=== PATIENT | male | born 1975 | race Caucasian/White ===

== ENCOUNTER 2019-05-09 12:25 | Inpatient (IN) | payer OTHER ==
--- NOTE | 2019-05-09 13:13 | PDOC ---
History of Present Illness - General History Source: Patient Exam Limitations: No Limitations - History of Present Illness Initial Comments: 05/09/19 17:36 43M PMH Asthma, polysubstance abuse (etoh, cocaine), anxiety sent from [facility] intake for lower back pain and b/l LE weakness and pain after multiple falls overnight after etoh and cocaine use. Drank continually through the night and used cocaine (states first time in 10 years); denies h/o DTs, drinks 1.5pt whiskey a day; last drink 8am today. Pt states he was unable to get up from the ground due to liquid on the ground - would fall every time he tried to pick himself up. Denies LOC, head strike, neck pain, headache, n/v, urinary incontinence, chest pain, sob. NKDA No PCP <Erich Singh - Last Filed: 05/09/19 17:35> <Susan Arguello - Last Filed: 05/09/19 18:51> - General Chief Complaint: Injury Stated Complaint: FALL Time Seen by Provider: 05/09/19 12:29 Past History - Past Medical History Anemia: No Asthma: Yes Cancer: No Cardiac Disorders: No CVA: No COPD: No CHF: No Dementia: No Diabetes: No GI Disorders: No Disorders: No HTN: No Hypercholesterolemia: No Kidney Stones: No Liver Disease: No Seizures: No Thyroid Disease: No - Surgical History Abdominal Surgery: No Appendectomy: No Cardiac Surgery: No Cholecystectomy: No Lung Surgery: No Neurologic Surgery: No Orthopedic Surgery: No - Reproductive History Testicular Surgery: No - Immunization History Immunization Up to Date: No - Psycho Social/Smoking Cessation Hx Smoking History: Current every day smoker Have you smoked in the past 12 months: Yes Number of Cigarettes Smoked Daily: 40 Information on smoking cessation initiated: Yes 'Breaking Loose' booklet given: 05/09/19 Hx Alcohol Use: Yes (1.5 Pint a day) Drug/Substance Use Hx: Yes (cocaine, marijuana,) Substance Use Type: Alcohol, Cocaine Hx Substance Use Treatment: Yes (10 years ago) <Erich Singh - Last Filed: 05/09/19 17:35> <Susan Arguello - Last Filed: 05/09/19 18:51> - Past Medical History Allergies/Adverse Reactions: Allergies Allergy/AdvReac Type Severity Reaction Status Date / Time No Known Allergies Allergy Verified 05/09/19 10:32 Home Medications: Ambulatory Orders Albuterol Sulfate Inhaler - [Ventolin HFA Inhaler -] 2 inh PO Q4H PRN #1 inh 08/23 Clomipramine HCl 50 mg PO TID 05/09/19 Clonazepam 1 mg PO TID 05/09/19 Fluticasone/Vilanterol [Breo Ellipta 100-25 Mcg INH] 1 each IH DAILY 05/09/19 Lamotrigine 150 mg PO BID 05/09/19 Review of Systems - Review of Systems Able to Perform ROS?: Yes Comments:: 05/09/19 17:36 CONSTITUTIONAL: Denies F / C HEENT: Denies headache RESP: Denies SOB CARD: Denies chest pain, palpitations GI: Endorses chronic constipation (last BM yesterday). Denies N / V / D, abdominal pain, inability to tolerate PO : Denies incontinence, retention SKIN: Denies rashes NEURO: endorses b/l LE pain and weakness; numbness of the thighs PSYCH: denies SI/HI, AVH. MSK: endorses low back pain Is the patient limited Upper Sorbian proficient: No <Erich Singh - Last Filed: 05/09/19 17:35> *Physical Exam - Vital Signs Last Vital Signs Temp Pulse Resp BP Pulse Ox 98.3 F 94 H 20 122/74 97 05/09/19 12:25 05/09/19 12:25 05/09/19 12:25 05/09/19 12:25 05/09/19 12:25 - Physical Exam 05/09/19 17:36 GEN: NAD. AAOx3. HEENT: NC/AT, CN II-XII intact, EOMI, PERRL. No facial asymmetry. Dry membranes ; no tongue fasciculation. Normal voice. Supple neck w/ FROM, no midline TTP. CV: S1/S2, RRR, no m/r/g LUNG: CTAB, no wheezes, crackles, rales, rhonchi. GI: equivocal TTP and guarding. +BS, nondistended, no masses MSK: 2+ distal pulses. No LE edema. Ecchymosis of b/l anterior knees w/o effusion or overlying warmth otherwise no obvious deformities of all extremities. Limited ROM of the hip and knees 2/2 pain and pt resistance. SKIN: Warm, dry, no rashes appreciated. PSYCH: Odd, anxious, labile affect; tearful at times and quickly returns to baseline. NEURO: Moving all extremities well. 5/5 UE strength. 5/5 dorsi/plantar flexion. Symmetric sensation. Unable to assess hip and knee strength 2/2 pain and resistance. BACK: no step offs, no signs of trauma, no pelvic instability; +TTP lumbar/ sacral midline and paraspinal. <Erich Singh - Last Filed: 05/09/19 17:35> - Vital Signs Last Vital Signs Temp Pulse Resp BP Pulse Ox 98.3 F 90 20 116/72 97 05/09/19 12:25 05/09/19 14:57 05/09/19 14:57 05/09/19 14:57 05/09/19 14:57 <Susan Arguello - Last Filed: 05/09/19 18:51> Heart Score/ECG Review #2 ECG reviewed & interpreted by me at: 18:20 General ECG Interpretation: Sinus Rhythm, Normal Rate, Normal Intervals Compared to previous ECG there are: No significant change 05/09/19 18:51 Normal sinus rhythm at [address] elevations or depressions. Unchanged from prior EKG. <Susan Arguello - Last Filed: 05/09/19 18:51> ED Treatment Course - LABORATORY CBC & Chemistry Diagram: 05/09/19 12:55 05/09/19 12:55 - RADIOLOGY Radiology Studies Ordered: Category Date Time Status CERVICAL SPINE CT W/O CONTR [CT] Stat CT Scan 05/09/19 13:[address] WITHOUT CONTRAST [CT] Stat CT Scan 05/09/19 13:09 Ordered CHEST X-RAY PORTABLE* [RAD] Stat Radiology 05/09/19 13:09 Ordered <Erich Singh - Last Filed: 05/09/19 17:35> - LABORATORY CBC & Chemistry Diagram: 05/09/19 12:55 05/09/19 12:55 - ADDITIONAL ORDERS Additional order review: Laboratory Results 05/09/19 05/09/19 12:55 12:55 Sodium 141 Potassium 4.6 Chloride 108 H Carbon Dioxide 21 Anion Gap 11 BUN 23.2 H Creatinine 1.6 H Est GFR (CKD-EPI)AfAm 60.26 Est GFR (CKD-EPI)NonAf 51.99 Random Glucose 73 L Calcium 8.3 L Total Bilirubin 0.4 AST 849 H ALT 246 H Alkaline Phosphatase 62 Troponin I 0.42 H Total Protein 7.7 Albumin 4.2 Alcohol, Quantitative 52.7 H 05/09/19 12:55 RBC 4.14 MCV 96.6 H MCHC 34.4 RDW 13.7 MPV 7.6 Neutrophils % 76.9 Lymphocytes % 11.0 Monocytes % 11.9 H Eosinophils % 0.0 Basophils % 0.2 - RADIOLOGY Radiology Studies Ordered: Category Date Time Status LUMBAR SPINE CT W/O CONTRAST [CT] Stat CT Scan 05/09/19 15:00 Ordered - Medications Given in the ED: ED Medications Discontinued Medications Generic Name Dose Route Start Last Admin Trade Name Freq PRN Reason Stop Dose Admin Acetaminophen 1,000 mg 05/09/19 13:14 05/09/19 13:26 Ofirmev Injection - IVPB 05/09/19 13:15 1,000 mg ONCE ONE Administration <Susan Arguello - Last Filed: 05/09/19 18:51> Medical Decision Making - Medical Decision Making 05/09/19 13:12 43M w/ etoh and cocaine abuse presenting with low back pain and b/l LE weakness/ pain. DDX- syncope (lytes, intox, cardiac), r/o fractures - cbc, cmp, cardiac, etoh - cxr - ekg - monitor VS and for withdrawal - pain ctrl 05/09/19 14:33 XR images and reports reviewed 05/09/19 15:33 CT images and reports reviewed EKG 1315 HR 97 NE 154 QRS 82 QTc 439 NSR labs reviewed elevated troponin, BUN/Cr, LFTs, Etoh, wbc - no baseline or prior labs to compare - CT lumbar - ASA, fluids 05/09/19 16:[address] Haq admitted <Erich Singh - Last Filed: 05/09/19 17:35> Discharge - Discharge Information Problems reviewed: Yes - Admission Yes <Erich Singh - Last Filed: 05/09/19 17:35> - Discharge Information Problems reviewed: Yes - Admission Yes <Susan Arguello - Last Filed: 05/09/19 18:51> - Discharge Information Clinical Impression/Diagnosis: NSTEMI (non-ST elevated myocardial infarction), Alcohol use, Back pain, Transaminitis Contusion, knee and lower leg Qualifiers: Encounter type: initial encounter Laterality: unspecified laterality Qualified Code(s): S80.00XA - Contusion of unspecified knee, initial encounter Condition: Fair
[2019-05-09] MEDS ORDERED: ACETAMINOPHEN 1000 MG/100 ML VIAL (NON FORMULARY) IVPB ONE (13:14)
[2019-05-09] MEDS ORDERED: ACETAMINOPHEN INJECTION 100 ML IVPB ONE (13:26)
--- NOTE | 2019-05-09 13:41 | PDOC ---
Attending Attestation - Resident Resident Name: Erich Singh - ED Attending Attestation I have performed the following: I have examined & evaluated the patient, The case was reviewed & discussed with the resident, I agree w/resident's findings & plan - HPI HPI: 05/09/19 13:40 43M PMH Asthma, polysubstance abuse (etoh, cocaine), anxiety sent from [facility] intake for lower back pain and b/l LE weakness and pain after multiple falls overnight after etoh and cocaine use beginning last night (where he had 1.5 pints of alcohol with cocaine). Drank continually through the night and used cocaine (states first time in 10 years); denies h/o DTs, drinks 1.5pt whiskey a day; last drink 8am today. Pt states he was unable to get up from the ground due to liquid on the ground - would fall every time he tried to pick himself up. he endorses BLE weakness and pain at his knees, where he may have fallen. a/w lower back pain, worse with movement. Denies LOC, head strike, neck pain, headache, n/v, urinary incontinence, chest pain, sob. went to [facility] today for detox, sent from [facility] for syncope evaluation, frequent falls., NKDA No PCP 05/09/19 15:01 05/09/19 15:13 - Physicial Exam PE: 05/09/19 13:40 Agree with the resident's HPI and PE as documented in the electronic medical record. NAD, EOMI, PERRL, nl conjunctiva, anicteric; neck supple. no C spine tenderness. lungs clear, RRR, abdomen soft nontender. no rebound, guarding. Back with lower lumbosacral TTP, no overlying skin discoloration or ecchymosis. MAGDALENO x4, no focal neuro deficits. No peripheral edema. normal color for ethnicity, WWP. +b/l knee and upper garvey ecchymosis and TTP, no joint laxity 2+ pulses in all extremities. 05/09/19 15:13 - Medical Decision Making 05/09/19 13:40 Vital Signs Temp Pulse Resp BP Pulse Ox 98.3 F 94 H 20 122/74 97 05/09/19 12:25 05/09/19 12:25 05/09/19 12:25 05/09/19 12:25 05/09/19 12:25 DDx. syncope: considered interval abnormalities including short QTC or long QT syndrome, WPW, conduction abnormality, Brugada, ACS, arrhythmia, PE, electrolyte disturbances, metabolic derangement. seizure, SENIOR SYSTEM OPERATOR lesion, CVA, ICH. vasovagal episode. Neuro exam is nonfocal, not consistent with CVA or primary neurologic abnormality. ETOH intoxication/withdrawal. 05/09/19 14:30 Chest x-ray is clear no acute pathology, x-rays of hip and knee are also unremarkable, no pelvic fractures noted No acute knee pathology is noted, incomplete fusion of the left anterior tibial tubercle but otherwise no acute changes. Laboratory results reviewed, alcohol level is +52.7, which could explain reactive leukocytosis 15 K. Remainder of electrolytes, wnl. +transaminitis seen, hepatitis panel sent, could be related to inflammatory liver disease, polysubstance abuse. however trop positive 0.4, ASA given EKG neg for acute pathology, NSR. no h/o bleeding issues in the past, no GIB. tylenol initially for pain control. additional toradol for anti inflammatory and analgesic effect CT head and C spine neg for acute pathology/bleed/ injuries. CT a/p of Lumbosacral spine added given his midline tenderness. doubt cauda equina/cord compression no neuro sx. CT L-spine from imaging on-call with anterior wedging deformities of T12 and L1 age-indeterminate, degenerative disc disease is seen at several levels. No posteriorly directed fragments, no spinal stenosis, no neural outlet encroachment at these levels. There is mild spinal stenosis at L3-L5 levels. No evidence of spinal instability. 05/09/19 15:14 admit for NSTEMI, tele, trend trops/serial ekg with monitor, pain control. syncope workup (though pt denies syncope, [facility] was concerned for syncope, frequent falls) 05/09/19 17:17 Heart Score/ECG Review #1 ECG reviewed & interpreted by me at: 13:15 General ECG Interpretation: Sinus Rhythm, Normal Rate, Normal Intervals 05/09/19 13:41 EKG normal sinus rhythm 97 bpm, no interval abnormalities, narrow QRS, ST and T wave segments and morphology normal.
[2019-05-09 13:53] LABS: BASO % 0.2 % (0-2.0); HEMOGLOBIN 13.7 GM/dL (11.7-16.9); MCH 33.2 pg (25.7-33.7); MCHC 34.4 g/dl (32.0-35.9); MEAN CELL VOLUME 96.6 fl (80-96); MEAN PLT VOLUME 7.6 fl (7.5-11.1); MONO % 11.9 % (3.8-10.2); NEUT % 76.9 % (42.8-82.8); PLATELET COUNT 302 K/MM3 (134-434); RBC 4.14 M/mm3 (4.00-5.60); RDW 13.7 % (11.9-15.9); WHITE BLOOD COUNT 15.1 K/mm3 (4.0-10.0)
[2019-05-09 14:35] LABS: ALBUMIN 4.2 g/dl (3.4-5.0); ALK PHOS 62 U/L (45-117); ANION GAP 11 MMOL/L (8-16); BILIRUBIN,TOTAL 0.4 mg/dL (0.2-1); BLOOD UREA NITROGEN 23.2 mg/dL (7-18); CALCIUM 8.3 mg/dL (8.5-10.1); CHLORIDE 108 mmol/L (98-107); CO2 21 mmol/L (21-32); CREATININE 1.6 mg/dL (0.55-1.3); GLUCOSE,RANDOM 73 mg/dL (74-106); POTASSIUM 4.6 mmol/L (3.5-5.1); SGOT/AST 849 U/L (15-37); SGPT/ALT 246 U/L (13-61); SODIUM 141 mmol/L (136-145); TOT PROT 7.7 g/dl (6.4-8.2)
[2019-05-09] MEDS ORDERED: ASPIRIN 81 MG CHEWABLE TABLETS PO ONE (15:15)
[2019-05-09] MEDS ORDERED: KETOROLAC TROMETHAMINE 15 MG/ML VIAL IVPUSH ONE (15:15)
[2019-05-09] MEDS ORDERED: KETOROLAC TROMETHAMINE 15 MG/ML VIAL ONE (15:18)
[2019-05-09] MEDS ORDERED: ASPIRIN 81 MG CHEWABLE TABLETS ONE (15:18)
[2019-05-09] MEDS ORDERED: SODIUM CHLORIDE 0.9% 500 ML INFUS.BAG IV ONE (15:20)
[2019-05-09] MEDS ORDERED: SODIUM CHLORIDE 0.9% 1000 ML INFUS.BAG IV ONE (18:21)
[2019-05-09] MEDS ORDERED: PIPERACILLIN/TAZOB 2.25 GM 2.25 GM in DEXTROSE 5%-WATER - 50 ML IVPB ONE (18:24)
[2019-05-09] MEDS ORDERED: PIPERACILLIN/TAZOB 2.25 GM 2.25 GM/50 ML BAG IVPB ONE (18:37)
--- NOTE | 2019-05-09 18:39 | HP ---
CHIEF COMPLAINT: weakness, severe myalgia, coca-cola colored urine HISTORY OF PRESENT ILLNESS: 43 M h/o OCD, anxiety disorder, asthma, PSA with Etoh and occasional cocaine, NOE on CPAP, obesity, presents to ED after episode of severe weakness and falling to the ground. Patient endorses going to a motel libertarian last night with some friends where he drank a 5th of vodka, and had an 8-ball (about 10 lines) of cocaine, soon after doing this, he felt an extreme sensation of euphoria and felt the urgent need to masturbate. Patient then began to masturbate for "hours ", and adds he did not let his penis go for 4-5 hours and endured prolonged, persistent masturbation. 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 At [facility], pt. was attempting to register but had frequent repeated falls due to severe myalgia and weakness so he was brought to ED. Patient denies CP/SOB, endorses some cough with whitish-yellow sputum, but denies fever/chills/ abdominal pain/diarrhea. Endorses his urine is like "coca-cola", and c/o severe b/l thigh pain and low back pain. ER course was notable for: (1) troponemia, ASA, ?Toradol given (2) Urology evaluation for penile trauma (3) aggressive IVF Recent Travel: denies PAST MEDICAL HISTORY: as above PAST SURGICAL HISTORY: denies Social History: Smoking: yes weed and occasional cigarettes Alcohol: yes 5th of vodka daily Drugs: THC, cocaine (occasional) Allergies No Known Allergies Allergy (Verified 05/09/19 10:32) HOME MEDICATIONS: Home Medications Medication Instructions Recorded Albuterol Sulfate Inhaler - 2 inh PO Q4H PRN #1 inh 12/14/15 [Ventolin HFA Inhaler -] Clomipramine HCl 50 mg PO TID 05/09/19 Clonazepam 1 mg PO TID 05/09/19 Fluticasone/Vilanterol [Breo 1 each IH DAILY 05/09/19 Ellipta 100-25 Mcg INH] Lamotrigine 150 mg PO BID 05/09/19 REVIEW OF SYSTEMS CONSTITUTIONAL: Absent: fever, chills, diaphoresis, generalized weakness, malaise, loss of appetite, weight change HEENT: Absent: rhinorrhea, nasal congestion, throat pain, throat swelling, difficulty swallowing, mouth swelling, ear pain, eye pain, visual changes CARDIOVASCULAR: Absent: chest pain, syncope, palpitations, irregular heart rate, lightheadedness , peripheral edema RESPIRATORY: Absent: cough, shortness of breath, dyspnea with exertion, orthopnea, wheezing, stridor, hemoptysis GASTROINTESTINAL: Absent: abdominal pain, abdominal distension, nausea, vomiting, diarrhea, constipation, melena, hematochezia GENITOURINARY: Absent: dysuria, frequency, urgency, hesitancy, hematuria, flank pain, genital pain MUSCULOSKELETAL: Absent: myalgia, arthralgia, joint swelling, back pain, neck pain SKIN: Absent: rash, itching, pallor HEMATOLOGIC/IMMUNOLOGIC: Absent: easy bleeding, easy bruising, lymphadenopathy, frequent infections ENDOCRINE: Absent: unexplained weight gain, unexplained weight loss, heat intolerance, cold intolerance NEUROLOGIC: Absent: headache, focal weakness or paresthesias, dizziness, unsteady gait, seizure, mental status changes, bladder or bowel incontinence PSYCHIATRIC: Absent: anxiety, depression, suicidal or homicidal ideation, hallucinations. PHYSICAL EXAMINATION Vital Signs - 24 hr 05/09/19 05/09/19 05/09/19 12:25 14:57 17:10 Temperature 98.3 F Pulse Rate 94 H Pulse Rate [ 90 Left Radial] Respiratory 20 20 Rate Blood Pressure 122/74 Blood Pressure 116/72 [Left Arm] O2 Sat by Pulse 97 97 100 Oximetry (%) 05/09/19 17:38 Temperature 98.1 F Pulse Rate Pulse Rate [ 72 Left Radial] Respiratory 20 Rate Blood Pressure Blood Pressure 126/86 [Left Arm] O2 Sat by Pulse 97 Oximetry (%) PE GA mildly anxious, AAox3, speaking in full sentences HEENT NC/AT, EOMI, neck supple Chest CTAB, no crackles or wheezing CVS s1, S2+, RRR, no m/r/g Abd obese, Soft, NT, ND, BS+ Ext No LE edema, b/l knee bruising and erythema tender to touch, good strength UE and LE, moves all 4 ext, ambulates but slowly swollen, erythematous penis with intact corporal bodies, profoundly ecchymotic with signs of skin excoriation and thickening, foreskin retractable, uretha patent, cremaster reflex positive Laboratory Results - last 24 hr 05/09/19 05/09/19 05/09/19 12:55 12:55 12:55 WBC 15.1 H RBC 4.14 Hgb 13.7 Hct 40.0 MCV 96.6 H MCH 33.2 MCHC 34.4 RDW 13.7 Plt Count 302 MPV 7.6 Absolute Neuts (auto) 11.6 H Neutrophils % 76.9 Lymphocytes % 11.0 Monocytes % 11.9 H Eosinophils % 0.0 Basophils % 0.2 Nucleated RBC % 0 Sodium 141 Potassium 4.6 Chloride 108 H Carbon Dioxide 21 Anion Gap 11 BUN 23.2 H Creatinine 1.6 H Est GFR (CKD-EPI)AfAm 60.26 Est GFR (CKD-EPI)NonAf 51.99 Random Glucose 73 L Calcium 8.3 L Total Bilirubin 0.4 AST 849 H ALT 246 H Alkaline Phosphatase 62 Creatine Kinase Emergency Medical Technician Troponin I 0.42 H Total Protein 7.7 Albumin 4.2 Alcohol, Quantitative 52.7 H 05/09/19 16:20 WBC RBC Hgb Hct MCV MCH MCHC RDW Plt Count MPV Absolute Neuts (auto) Neutrophils % Lymphocytes % Monocytes % Eosinophils % Basophils % Nucleated RBC % Sodium Potassium Chloride Carbon Dioxide Anion Gap BUN Creatinine Est GFR (CKD-EPI)AfAm Est GFR (CKD-EPI)NonAf Random Glucose Calcium Total Bilirubin AST ALT Alkaline Phosphatase Creatine Kinase Troponin I 0.45 H Total Protein Albumin Alcohol, Quantitative ASSESSMENT/PLAN: 43 M h/o OCD, anxiety disorder, NOE on CPAP, Etoh dependence, PSA with cocaine admitted for rhabdomyolysis with troponemia, HIPOLITO. Rhabdomyolysis 2/2 cocaine use, and prolonged, continuous act of masturbation with self inflicted penile injury aggressive IV hydration NS 200ml/hr, serial trops/CK/chem/LFTs Renal/bladder US, strict avoidance of nephrotoxins (received Toradol by ED staff ) counseled patient on etoh and drug abstinence Self inflicted penile injury on exam, seen with swollen, erythematous penis with skin fissures and skin breaks 1 dose of Zosyn in view of skin breaks and underlying cellulitis risk Urology evaluation to rule out fracture: Dr. Guerrero HIPOLITO likely 2/2 rhabdo, obtain renal/bladder US IV hydration, avoid nephrotoxins, serial chem/CK levels Renal consult: Dr Cruz Troponemia likely 2/2 cocaine use and underlying rhabdo, no clinical signs of ACS cont. trending to document peak, cardiac echo Cardiology consult NOE CPAP QHS counseled on diet, exercise, weight loss counseled on Klonipin worsening underlying NOE OCD likely was in acute exacerbation due to compulsive masturbation restart Clomipramine PSA counseled on etoh and drug abuse watch for Etoh withdrawal restart Klonipin this will also help treat Etoh withdrawal aggressive IVF Tele monitoring SCD/CAROLE for now Visit type - Emergency Visit Emergency Visit: Yes ED Registration Date: 05/09/19 Care time: The patient presented to the Emergency Department on the above date and was hospitalized for further evaluation of their emergent condition. - New Patient This patient is new to me today: Yes Date on this admission: 05/09/19 - Critical Care Critical Care patient: No
--- NOTE | 2019-05-09 18:47 | PN ---
Progress Note (short form) - Note Progress Note: UROLOGY CONSULT DICTATED. SCROTAL ELAVATION AND ICE PACKS. WILL NEED W/U OP.
[2019-05-09] MEDS: SODIUM CHLORIDE 1,000 ML IV SCH (18:56)
[2019-05-09] MEDS ORDERED: ALBUTEROL SO4 HFA INHALER IH PRN (19:02)
[2019-05-09] MEDS ORDERED: MORPHINE SULFATE 2 MG/ML VIAL IVPUSH ONE (20:49)
[2019-05-09] MEDS ORDERED: MORPHINE SULFATE 2 MG/ML VIAL ONE (20:51)
[2019-05-09] MEDS ORDERED: lamoTRIgine 100 MG TABLET PO SCH (22:00)
[2019-05-09] MEDS: LAMOTRIGINE 100 MG, LAMOTRIGINE 50 MG PO SCH (22:49)
[2019-05-09] MEDS: clonazePAM 0.5 MG TABLET PO PRN (22:49)
[2019-05-09] MEDS: MAG HYDROX/ALH/SMC/DPHA/LIDO 240 ML MOUTHWASH MM SCH (23:30)
[2019-05-10] MEDS: SODIUM CHLORIDE 1,000 ML IV SCH ×3 (00:15→21:51)
[2019-05-10 01:30] VITALS: BMI 34.5
[2019-05-10] MEDS ORDERED: MORPHINE SULFATE 2 MG/ML VIAL IVPUSH ONE ×2 (03:42→11:15)
[2019-05-10] MEDS ORDERED: LIDOCAINE 5% TOPICAL PATCH TP ONE (04:00)
[2019-05-10] MEDS: MAG HYDROX/ALH/SMC/DPHA/LIDO 240 ML MOUTHWASH MM SCH ×4 (05:53→21:50)
[2019-05-10 07:04] LABS: BASO % 0.5 % (0-2.0); EOS % 0.2 % (0-4.5); HEMATOCRIT 37.1 % (35.4-49); HEMOGLOBIN 12.6 GM/dL (11.7-16.9); LYMPH % 22.3 % (8-40); MCH 33.2 pg (25.7-33.7); MCHC 34.1 g/dl (32.0-35.9); MEAN CELL VOLUME 97.4 fl (80-96); MEAN PLT VOLUME 7.6 fl (7.5-11.1); MONO % 9.8 % (3.8-10.2); NEUT % 67.2 % (42.8-82.8); PLATELET COUNT 229 K/MM3 (134-434); RDW 13.1 % (11.9-15.9); WHITE BLOOD COUNT 8.3 K/mm3 (4.0-10.0)
[2019-05-10] MEDS ORDERED: PATIENT'S OWN MEDICATION (NON-FORMULARY) (Clomipramine Hcl [Clomipramine Hcl] 50 MG) PO SCH (07:30)
[2019-05-10 07:55] LABS: ALBUMIN 3.3 g/dl (3.4-5.0); ALK PHOS 49 U/L (45-117); ANION GAP 6 MMOL/L (8-16); BILIRUBIN,TOTAL 0.6 mg/dL (0.2-1); BLOOD UREA NITROGEN 20.5 mg/dL (7-18); CALCIUM 7.8 mg/dL (8.5-10.1); CHLORIDE 113 mmol/L (98-107); CO2 25 mmol/L (21-32); GLUCOSE,RANDOM 84 mg/dL (74-106); POTASSIUM 4.5 mmol/L (3.5-5.1); SGPT/ALT 414 U/L (13-61); SODIUM 144 mmol/L (136-145); TOT PROT 6.1 g/dl (6.4-8.2)
[2019-05-10 08:26] LABS: SGOT/AST 1353 U/L (15-37)
--- NOTE | 2019-05-10 08:39 | CON.ID ---
Consult Consult Specialty:: infectious diseases Referred by:: Reason for Consultation:: iv drug abuse,leukocytosis - History of Present Illness Chief Complaint: legs are hurting History of Present Illness: 43 M h/o OCD, anxiety disorder, asthma, PSA with Etoh and occasional cocaine, NOE on CPAP, obesity, presented to ED after episode of severe weakness and falling to the ground. 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 At [facility], pt. was attempting to register but had frequent repeated falls due to severe myalgia and weakness so he was brought to ED. Patient denies CP/SOB, endorses some cough with whitish-yellow sputum, but denies fever/chills/abdominal pain/ diarrhea. Endorses his urine is like "coca-cola", and c/o severe b/l thigh pain and low back pain. 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 Pulmonary: Yes: Asthma Psych: Yes: Anxiety, Depression Musculoskeletal: Yes: Other (pain in both knees,right thigh,abrasion of right thigh) - Past Surgical History Past Surgical History: Yes: None - Alcohol/Substance Use Hx Alcohol Use: Yes (1.5 Pint a day) History of Substance Use: reports: Cocaine - Smoking History Smoking history: Current every day smoker Have you smoked in the past 12 months: Yes Aproximately how many cigarettes per day: 40 - Social History Occupation: employed Home Medications - Allergies Allergies/Adverse Reactions: Allergies Allergy/AdvReac Type Severity Reaction Status Date / Time No Known Allergies Allergy Verified 05/09/19 10:32 - Home Medications Home Medications: Ambulatory Orders Albuterol Sulfate Inhaler - [Ventolin HFA Inhaler -] 2 inh PO Q4H PRN #1 inh 08/23 Clomipramine HCl 50 mg PO TID 05/09/19 Clonazepam 1 mg PO TID 05/09/19 Fluticasone/Vilanterol [Breo Ellipta 100-25 Mcg INH] 1 each IH DAILY 05/09/19 Lamotrigine 150 mg PO BID 05/09/19 Review of Systems - Review of Systems Constitutional: reports: Other (euphoric) Eyes: reports: No Symptoms HENT: reports: No Symptoms Neck: reports: No Symptoms Cardiovascular: reports: No Symptoms Respiratory: reports: No Symptoms Gastrointestinal: reports: No Symptoms Genitourinary: reports: Pain, Testicular Pain, Other Musculoskeletal: reports: Muscle Pain, Muscle Cramps Integumentary: reports: Bruising Neurological: reports: No Symptoms Endocrine: reports: No Symptoms Hematology/Lymphatic: reports: No Symptoms Psychiatric: reports: No Symptoms Physical Exam Vital Signs: Vital Signs Temperature 97.3 F L 05/10/19 02:00 Pulse Rate 80 05/10/19 04:00 Respiratory Rate 18 05/10/19 04:00 Blood Pressure 121/68 05/10/19 04:00 O2 Sat by Pulse Oximetry (%) 96 05/09/19 23:15 Constitutional: Yes: Well Nourished, No Distress, Calm HENT: Yes: Atraumatic, Normocephalic Neck: Yes: Supple, Trachea Midline Cardiovascular: Yes: Regular Rate and Rhythm Respiratory: Yes: Regular, CTA Bilaterally Gastrointestinal: Yes: Normal Bowel Sounds, Soft Renal/: Yes: Scrotal Edema, Other (penile edema,skin excoriation) Musculoskeletal: Yes: WNL Extremities: Yes: Other (mottling of the thighs) Neurological: Yes: Alert, Oriented Psychiatric: Yes: Alert, Oriented Labs: CBC, BMP 05/10/19 05:45 05/10/19 05:45 Imaging - Results Chest X-ray: Report Reviewed, Image Reviewed Cat Scan: Report Reviewed, Image Reviewed Assessment/Plan 43 M h/o OCD, anxiety disorder, NOE on CPAP, Etoh dependence, PSA with cocaine admitted for rhabdomyolysis with troponemia, HIPOLITO. Rhabdomyolysis penile erythema HIPOLITO Troponemia NOE drug abuse plan hydration monitor ck levels close watch if spikes any fever blood cx elevation of scrotum urology on case will hold off on abx for now if wbc starts increasing start on abx will d/w the team
[2019-05-10] MEDS ORDERED: PT OWN MED DRAWER 7, Y5N ONE (09:15)
--- NOTE | 2019-05-10 09:21 | EKG ---
Test Reason : Blood Pressure : / mmHG Vent. Rate : 091 BPM Atrial Rate : 091 BPM P-R Int : 168 ms QRS Dur : 086 ms QT Int : 360 ms P-R-T Axes : 058 068 052 degrees QTc Int : 442 ms NORMAL SINUS RHYTHM NORMAL ECG WHEN COMPARED WITH ECG OF 09-MAY-2019 13:15, NO SIGNIFICANT CHANGE WAS FOUND Confirmed by Vanessa Venegas ([id number]) on 05/10/2019 9:20:51 AM Referred By: Confirmed By:Vanessa Venegas
--- NOTE | 2019-05-10 09:27 | EKG ---
Test Reason : Blood Pressure : / mmHG Vent. Rate : 097 BPM Atrial Rate : 097 BPM P-R Int : 154 ms QRS Dur : 082 ms QT Int : 346 ms P-R-T Axes : 061 066 048 degrees QTc Int : 439 ms NORMAL SINUS RHYTHM NORMAL ECG NO PREVIOUS ECGS AVAILABLE Confirmed by Vanessa Venegas ([id number]) on 05/10/2019 9:27:06 AM Referred By: Confirmed By:Vanessa Venegas
[2019-05-10] MEDS: clonazePAM 0.5 MG TABLET PO PRN ×2 (09:49→22:08)
--- NOTE | 2019-05-10 09:49 | CON.CARD ---
Consult Consult Specialty:: CV - History of Present Illness Chief Complaint: muscle weakness History of Present Illness: 43 M here with muscle weakness and fall Patient was at a [employer] where he drank a 5th of vodka, and had an 8-ball (about 10 lines) of cocaine. soon after doing this, he felt an extreme sensation of euphoria and felt the urgent need to masturbate. Patient then began to masturbate for "hours", and adds he did not let his penis go for 4-5 hours and endured prolonged, persistent masturbation. fell down ? slipped on water on the floor. went to [facility] to be admitted for detox-while attempting to register he had frequent repeated falls due to severe myalgia and weakness so he was brought to ED. Patient denied CP, SOB in ER. on history by me, he states "you know what?...i probably was having very slight cp when i came in". attributes it to being very anxious, emotional, teary at that time. none since. 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 Pulmonary: Yes: Asthma Psych: Yes: Anxiety, Depression Musculoskeletal: Yes: Other (pain in both knees,right thigh,abrasion of right thigh) - Past Surgical History Past Surgical History: Yes: None - Alcohol/Substance Use Hx Alcohol Use: Yes (1.5 Pint a day) History of Substance Use: reports: Cocaine - Smoking History Smoking history: Current every day smoker Have you smoked in the past 12 months: Yes Aproximately how many cigarettes per day: 40 - Social History Occupation: employed Home Medications - Allergies Allergies/Adverse Reactions: Allergies Allergy/AdvReac Type Severity Reaction Status Date / Time No Known Allergies Allergy Verified 05/09/19 10:32 - Home Medications Home Medications: Ambulatory Orders Albuterol Sulfate Inhaler - [Ventolin HFA Inhaler -] 2 inh PO Q4H PRN #1 inh 08/23 Clomipramine HCl 50 mg PO TID 05/09/19 Clonazepam 1 mg PO TID 05/09/19 Fluticasone/Vilanterol [Breo Ellipta 100-25 Mcg INH] 1 each IH DAILY 05/09/19 Lamotrigine 150 mg PO BID 05/09/19 Vital Signs: Vital Signs Temperature 97.3 F L 05/10/19 02:00 Pulse Rate 80 05/10/19 04:00 Respiratory Rate 18 05/10/19 04:00 Blood Pressure 121/68 05/10/19 04:00 O2 Sat by Pulse Oximetry (%) 96 05/09/19 23:15 - Other Data Labs, Other Data: CBC, BMP 05/10/19 05:45 05/10/19 05:45 Troponin, BNP 05/09/19 05/09/19 12:55 16:20 Troponin I 0.42 H 0.45 H Troponin, BNP 05/09/19 05/09/19 12:55 16:20 Troponin I 0.42 H 0.45 H Assessment/Plan CXR: clear lungs, normal mediastinum ECG x2: NSR, WNL tele: NSR, no events chest pain: -non-anginal description, mild sx's he notices only in retrospect today -doubt acute CV pathology--check echo -if no change in sx's, would defer ischemia eval in setting of recent cocaine abuse. outpt f/u for surveillance -cont tele x 24 hrs, then can d/c if echo ok and no more CV sx's elevated trop: -trop 0.4-0.4 = indeterminate range, flat trend, now c/w ACS. ECG normal x 2 -CPK >14K with hi CK-MB but normal index--sec to rhabdo HIPOLITO, rhabdo: -IVF, plan per hospitalist -renal fxn improving cocaine and etoh abuse: -pt advised of hi risk of with current presentation of cocaine-induced rhabdo and nother potential fatal complications -counselled on cessation
[2019-05-10] MEDS ORDERED: CLOMIPRAMINE 50 MG PO SCH (10:00)
[2019-05-10] MEDS ORDERED: BENZOCAINE/MENTH/CETYLPYRD CL 1 EACH LOZENGE MM PRN (10:07)
[2019-05-10] MEDS: LAMOTRIGINE 100 MG, LAMOTRIGINE 50 MG PO SCH ×2 (10:18→21:50)
--- NOTE | 2019-05-10 10:37 | PN ---
Physical Exam: SUBJECTIVE: Patient seen and examined at the bedside. Stated he is doing a little better than yesterday. Endorses bilateral leg pain. Stated that his urine continues to have some darkness but is starting to clear up. Endorses not having a bowel movement in several days. Denies cp, sob, abd pain, nausea, vomiting, headaches, dizziness, lightheadedness, visual changes. OBJECTIVE: Vital Signs Period Temp Pulse Resp BP Sys/Paige Pulse Ox Last 24 Hr 97.3 F-98.3 F 72-94 18-20 116-147/68-86 96-100 GENERAL: The patient is awake, alert, and fully oriented, in no acute distress. HEAD: Normal with no signs of trauma. EYES: PERRL, extraocular movements intact, conjunctiva clear. ENT: Oropharynx clear without exudates, moist mucous membranes. LUNGS: Breath sounds equal, clear to auscultation bilaterally, no wheezes, no crackles, no accessory muscle use. HEART: Regular rate and rhythm, S1, S2 without murmur. ABDOMEN: Soft, obese, nontender, nondistended, normoactive bowel sounds, no guarding, no rebound, no masses. EXTREMITIES: 2+ pulses, warm, well-perfused, no edema. Noted bilateral ecchymoses around the knees anteriorly and posteriorly tender to the touch. Limited range of motion at the knee secondary to pain. NEUROLOGICAL: Cranial nerves II through XII grossly intact. 5/5 muscle strength bilaterally on the upper extremities. 4/5 muscle strength on the lower extremities bilaterally limited due to pain. Sensation intact to gross touch bilaterally. PSYCH: Normal mood, normal affect. Tends to repeat questions. SKIN: Warm, dry, normal turgor, ecchymoses as above. Laboratory Results - last 24 hr 05/09/19 05/09/19 05/09/19 12:55 12:55 12:55 WBC 15.1 H RBC 4.14 Hgb 13.7 Hct 40.0 MCV 96.6 H MCH 33.2 MCHC 34.4 RDW 13.7 Plt Count 302 MPV 7.6 Absolute Neuts (auto) 11.6 H Neutrophils % 76.9 Lymphocytes % 11.0 Monocytes % 11.9 H Eosinophils % 0.0 Basophils % 0.2 Nucleated RBC % 0 Sodium 141 Potassium 4.6 Chloride 108 H Carbon Dioxide 21 Anion Gap 11 BUN 23.2 H Creatinine 1.6 H Est GFR (CKD-EPI)AfAm 60.26 Est GFR (CKD-EPI)NonAf 51.99 Random Glucose 73 L Calcium 8.3 L Total Bilirubin 0.4 AST 849 H ALT 246 H Alkaline Phosphatase 62 Creatine Kinase Direct Casting Operator Creatine Kinase Index CK-MB (CK-2) Troponin I 0.42 H Total Protein 7.7 Albumin 4.2 Alcohol, Quantitative 52.7 H 05/09/19 05/09/19 05/10/19 16:20 16:20 05:45 WBC RBC Hgb Hct MCV MCH MCHC RDW Plt Count MPV Absolute Neuts (auto) Neutrophils % Lymphocytes % Monocytes % Eosinophils % Basophils % Nucleated RBC % Sodium 144 Potassium 4.5 Chloride 113 H Carbon Dioxide 25 Anion Gap 6 L BUN 20.5 H Creatinine 1.0 Est GFR (CKD-EPI)AfAm 106.36 Est GFR (CKD-EPI)NonAf 91.77 Random Glucose 84 Calcium 7.8 L Total Bilirubin 0.6 AST 1353 H ALT 414 H Alkaline Phosphatase 49 Creatine Kinase > 62063 H Creatine Kinase Index 0.0 CK-MB (CK-2) 206.3 H Troponin I 0.45 H Total Protein 6.1 L Albumin 3.3 L Alcohol, Quantitative 05/10/19 05:45 WBC 8.3 RBC 3.80 L Hgb 12.6 Hct 37.1 MCV 97.4 H MCH 33.2 MCHC 34.1 RDW 13.1 Plt Count 229 D MPV 7.6 Absolute Neuts (auto) 5.6 Neutrophils % 67.2 Lymphocytes % 22.3 D Monocytes % 9.8 Eosinophils % 0.2 D Basophils % 0.5 Nucleated RBC % 0 Sodium Potassium Chloride Carbon Dioxide Anion Gap BUN Creatinine Est GFR (CKD-EPI)AfAm Est GFR (CKD-EPI)NonAf Random Glucose Calcium Total Bilirubin AST ALT Alkaline Phosphatase Creatine Kinase Creatine Kinase Index CK-MB (CK-2) Troponin I Total Protein Albumin Alcohol, Quantitative Active Medications Generic Name Dose Route Start Last Admin Trade Name Freq PRN Reason Stop Dose Admin Albuterol Sulfate 2 puff 05/09/19 19:02 Ventolin Hfa Inhaler - IH Q4H PRN SHORT OF BREATH/WHEEZING Benzocaine/Menthol 1 each 05/10/19 10:07 Cepacol Lozenge - MM PRN PRN SORE THROAT Clonazepam 1 mg 05/09/19 19:02 05/10/19 09:49 Klonopin - PO 1 mg TID PRN Administration ANXIETY Sodium Chloride 1,000 mls @ 200 mls/hr 05/09/19 18:30 05/10/19 00:15 Normal Saline - IV 200 mls/hr ASDIR GIOVANNI Administration Lamotrigine 100 mg/ 150 mg 05/09/19 22:00 05/10/19 10:18 Lamotrigine 50 mg PO 150 mg BID GIOVANNI Administration Lidocaine/Aluminum/Magnesium/Simeth 5 ml 05/10/19 00:00 05/10/19 05:53 Magic Mouthwash *Sjr Formula* - MM 5 ml Q6HPO GIOVANNI Administration Miscellaneous 1 each 05/10/19 16:00 Lidoderm Patch Removal MC 05/10/19 16:01 ONCE ONE Morphine Sulfate 1 mg 05/10/19 08:53 Morphine Sulfate IVPUSH 05/10/19 08:54 ONCE ONE Non-Formulary Medication 1 each 05/10/19 10:00 Patient's Own Med PO DAILY GIOVANNI ASSESSMENT/PLAN: Rito Ambrose is a 43 male with a past medical history of OCD, anxiety disorder , NOE on CPAP, Etoh dependence, PSA with cocaine admitted for rhabdomyolysis with troponemia and HIPOLITO. Rhabdomyolysis - likely secondary to cocaine use, and prolonged, continuous act of masturbation with self inflicted penile injury - aggressive IV hydration NS 200ml/hr, serial trops/CK/chem/LFTs - Renal/bladder US - strict avoidance of nephrotoxins - counseled patient on etoh and drug abstinence Self inflicted penile injury - urology consulted, recs appreciated - scrotal elevation and ice packs - urology advised CT scan when patient stable - will need outpatient follow up HIPOLITO - likely 2/2 rhabdo, improving - IV hydration, avoid nephrotoxins, serial chem/CK levels - nephrology consulted, recs appreciated Troponemia - likely 2/2 cocaine use and underlying rhabdo, no clinical signs of ACS - peak at 0.45, trending down - echo ordered noting EF60-65%, borderline left concentric hypertrophy, trace to mild mitral regurg, trace tricuspid regurg - EKG negative for ACS - Cardiology consult, recs appreciated, can d/c tele tomorrow if no cardiac events Elevated LFTs - likely in setting of alcohol use (AST:ALT 2:1 ratio) and rhabdomyolysis, continue to monitor - hep panel pending - avoid hepatotoxins NOE - CPAP QHS - counseled on diet, exercise, weight loss - counseled on Klonipin worsening underlying NOE OCD - likely was in acute exacerbation due to compulsive masturbation - restart Clomipramine - hold lamotrigine in the setting of elevated LFTs Alcohol and Cocaine Abuse - counseled on etoh and drug abuse - watch for Etoh withdrawal - restart Klonipin this will also help treat Etoh withdrawal - aggressive IVF DVT PPx - SCDs FEN - NS at 200cc/hr - continue to monitor electrolytes and replete as necessary - Regular diet Dispo - continue to monitor on telemetry Visit type - Emergency Visit Emergency Visit: Yes ED Registration Date: 05/10/19 Care time: The patient presented to the Emergency Department on the above date and was hospitalized for further evaluation of their emergent condition. - New Patient This patient is new to me today: Yes Date on this admission: 05/10/19 - Critical Care Critical Care patient: No
--- NOTE | 2019-05-10 12:45 | CONSULT ---
Consult Consult Specialty:: Nephrology Reason for Consultation:: hipolito - History of Present Illness Chief Complaint: weakness, myalgia and dark urine History of Present Illness: Pt is a 43 year old male with pmhx of OCD, axiety, etoh abuse, asthma NOE who presents for weakness and myalgia. He also complains of dark urine. He says that he drinks alcohol every day. He went to a hotel yesterday and started to do cocaine. He says that he has not done it in a long time. I was called to evaluate him for HIPOLITO. He was also found to have rhabdo. He complains of generalized muscle pain. He says that he spilled water in the hotel and kept "falling." He denies chest pain. 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 Pulmonary: Yes: Asthma Psych: Yes: Anxiety, Depression Musculoskeletal: Yes: Other (pain in both knees,right thigh,abrasion of right thigh) - Past Surgical History Past Surgical History: Yes: None - Alcohol/Substance Use Hx Alcohol Use: Yes (1.5 Pint a day) History of Substance Use: reports: Cocaine - Smoking History Smoking history: Current every day smoker Have you smoked in the past 12 months: Yes Aproximately how many cigarettes per day: 40 - Social History Occupation: employed Home Medications - Allergies Allergies/Adverse Reactions: Allergies Allergy/AdvReac Type Severity Reaction Status Date / Time No Known Allergies Allergy Verified 05/09/19 10:32 - Home Medications Home Medications: Ambulatory Orders Albuterol Sulfate Inhaler - [Ventolin HFA Inhaler -] 2 inh PO Q4H PRN #1 inh 08/23 Clomipramine HCl 50 mg PO TID 05/09/19 Clonazepam 1 mg PO TID 05/09/19 Fluticasone/Vilanterol [Breo Ellipta 100-25 Mcg INH] 1 each IH DAILY 05/09/19 Lamotrigine 150 mg PO BID 05/09/19 Family Medical History Family History: Denies Review of Systems - Review of Systems Constitutional: reports: Malaise Eyes: reports: No Symptoms HENT: reports: No Symptoms Neck: reports: No Symptoms Cardiovascular: reports: No Symptoms Gastrointestinal: reports: No Symptoms Genitourinary: reports: Testicular Swelling Musculoskeletal: reports: Extremity Pain Neurological: reports: No Symptoms Endocrine: reports: No Symptoms Hematology/Lymphatic: reports: No Symptoms Psychiatric: reports: No Symptoms Physical Exam Vital Signs: Vital Signs Temperature 97.7 F 05/10/19 09:00 Pulse Rate 87 05/10/19 09:00 Respiratory Rate 18 05/10/19 09:00 Blood Pressure 132/75 05/10/19 09:00 O2 Sat by Pulse Oximetry (%) 98 05/10/19 09:00 Constitutional: Yes: Anxious Eyes: Yes: Conjunctiva Clear HENT: Yes: Atraumatic Neck: Yes: Supple Cardiovascular: Yes: S1, S2 Respiratory: Yes: CTA Bilaterally Gastrointestinal: Yes: Soft Renal/: Yes: WNL Musculoskeletal: Yes: WNL Edema: No Neurological: Yes: Oriented Psychiatric: Yes: Oriented Labs: CBC, BMP 05/10/19 05:45 05/10/19 05:45 Laboratory Tests 05/09/19 05/09/19 05/09/19 12:55 12:55 16:20 Creatinine 1.6 H Creatine Kinase > 80753 H Alcohol, Quantitative 52.7 H 05/10/19 05/10/19 05:45 11:13 Creatinine 1.0 Creatine Kinase Pending Alcohol, Quantitative Imaging - Results Chest X-ray: Report Reviewed Problem List - Problems (1) HIPOLITO (acute kidney injury) Code(s): N17.9 - ACUTE KIDNEY FAILURE, UNSPECIFIED (2) Rhabdomyolysis Code(s): M62.82 - RHABDOMYOLYSIS (3) Alcohol dependence with uncomplicated withdrawal Code(s): F10.230 - ALCOHOL DEPENDENCE WITH WITHDRAWAL, UNCOMPLICATED (4) Anxiety and depression Code(s): F41.9 - ANXIETY DISORDER, UNSPECIFIED; F32.9 - MAJOR DEPRESSIVE DISORDER, SINGLE EPISODE, UNSPECIFIED Assessment/Plan Current Medications Generic Name Dose Route Start Last Admin Trade Name Freq PRN Reason Stop Dose Admin Albuterol Sulfate 2 puff 05/09/19 19:02 Ventolin Hfa Inhaler - IH Q4H PRN SHORT OF BREATH/WHEEZING Benzocaine/Menthol 1 each 05/10/19 10:07 Cepacol Lozenge - MM PRN PRN SORE THROAT Clonazepam 1 mg 05/09/19 19:02 05/10/19 09:49 Klonopin - PO 1 mg TID PRN Administration ANXIETY Sodium Chloride 1,000 mls @ 200 mls/hr 05/09/19 18:30 05/10/19 00:15 Normal Saline - IV 200 mls/hr ASDIR GIOVANNI Administration Lamotrigine 100 mg/ 150 mg 05/09/19 22:00 05/10/19 10:18 Lamotrigine 50 mg PO 150 mg BID GIOVANNI Administration Lidocaine/Aluminum/Magnesium/Simeth 5 ml 05/10/19 00:00 05/10/19 12:17 Magic Mouthwash *Sjr Formula* - MM 5 ml Q6HPO GIOVANNI Administration Miscellaneous 1 each 05/10/19 16:00 Lidoderm Patch Removal MC 05/10/19 16:01 ONCE ONE Non-Formulary Medication 1 each 05/10/19 10:00 Patient's Own Med PO DAILY GIOVANNI Impression 1. HIPOLITO 2. rhabdo 3. etoh abuse 4. cocaine use 5. asthma 6. NOE 7. transaminitis Plan - cont fluids - follow cpk level - renal function is improved - check ua - monitor lytes closely - monitor ast and alt levels
--- NOTE | 2019-05-10 14:29 | ECHO ---
Name: TATA GARCIA Exam:Adult Echocardiogram Study Date: 05/10/2019 01:42 PM Age: 43 yrs Reason For Study: Chest pain Height: 66 in Weight: 214 lb BSA: 2.1 m2 MMode/2D Measurements & Calculations IVSd: 1.1 cm Ao root diam: 2.6 cm LVIDd: 3.3 cm LA dimension: 3.8 cm LVIDs: 2.2 cm ACS: 1.8 cm LVPWd: 1.6 cm EDV(Teich): 44.7 ml LVOT diam: 1.9 cm ESV(Teich): 16.0 ml RV S Izaiah: 15.3 cm/sec Doppler Measurements & Calculations MV E max izaiah: 89.3 cm/sec Ao V2 max: 137.3 cm/sec MV A max izaiah: 70.1 cm/sec Ao max P.5 mmHg MV E/A: 1.3 Ao V2 mean: 96.3 cm/sec MV dec time: 0.16 sec Ao mean P.1 mmHg Ao V2 VTI: 27.5 cm COURTNEY(I,D): 2.3 cm2 COURTNEY(V,D): 2.3 cm2 LV V1 max P.0 mmHg MR max izaiah: 335.3 cm/sec LV V1 mean P.8 mmHg MR max P.0 mmHg LV V1 max: 111.6 cm/sec LV V1 mean: 78.0 cm/sec LV V1 VTI: 22.8 cm SV(LVOT): 63.7 ml TR max izaiah: 106.8 cm/sec TR max P.6 mmHg PA V2 max: 72.6 cm/sec Med Peak E' Izaiah: 11.1 cm/sec PA max P.1 mmHg Med E/e': 8.0 Lat Peak E' Izaiah: 14.1 cm/sec Lat E/e': 6.3 Procedure The study was technically difficult with many images being suboptimal in quality. Study Quality: Tech nically suboptimal. Left Ventricle The left ventricle is normal in size. There is borderline concentric left ventricular hypertrophy. Th e left ventricular ejection fraction is normal. Ejection Fraction = 60-65%. Left Ventricular Filling pattern is normal for age. Right Ventricle The right ventricle is normal in size and function. Atria Normal left and right atrial size and function. Mitral Valve The mitral valve is grossly normal. There is trace to mild mitral regurgitation. Tricuspid Valve The tricuspid valve is not well visualized. There is trace tricuspid regurgitation. Aortic Valve The aortic valve is normal in structure and function. Pulmonic Valve The pulmonic valve is not well visualized. Great Vessels The aortic root is normal size. Pericardium/Pleura There is no pericardial effusion. Interpretation Summary This was essentially a normal study. Vanessa Venegas 05/10/2019 02:29 PM
--- NOTE | 2019-05-10 15:16 | CONS ---
DATE OF CONSULTATION: DATE OF DICTATION: 05/09/2019 HISTORY: Patient is a 43-year-old male who presented to the emergency room with anxiety and severe myalgia after an acute binge of alcohol and cocaine use last night. He states that he has got severe low back pain and lower extremity pain. He had fallen last night and was unable to stand up. He states that after using a large dose of intranasal cocaine he masturbated for a long period of time without achieving organism and feels that he injured himself. He is having dysuria and a weak and splaying of the stream. He did void, and this was [id number] urine. The patient denies any history of diabetes. He does have history of asthma. PAST MEDICAL HISTORY: He denies any other past medical history. PAST SURGICAL HISTORY: He denies any other past surgical history. SOCIAL HISTORY: He does smoke cigarettes, and he does drink a large amount of alcohol, approximately 1-2 pints a day. He has been using cocaine. He states this is intermittent. ALLERGIES: He denies any allergies. MEDICATIONS: He is presently on Ventolin inhaler, clomipramine, clonazepam, Breo Ellipta, and lamotrigine 150 mg twice a day. REVIEW OF SYSTEMS: He denied any past history. He complains of severe, bilateral lower extremity pain and weakness. Also numbness in the thigh and pelvis. He also complains of severe low back pain. PHYSICAL EXAMINATION: Vital Signs: In the emergency room, his temperature was 98.3, blood pressure 116/72, pulse oximetry 97. General: He appears to be oriented and in no apparent distress. Abdomen: Slightly tender. Extremities: He has severe tenderness and ecchymosis over both knees and hips. Skin: Warm and dry. Genitourinary: His penis reveals edema of the foreskin. There are superficial abrasions throughout the phallus. The meatus appears to be adequate. Testes are normal in size and consistency. No hernias are palpated. Perineum is atraumatic. DIAGNOSTIC DATA: The patient had a CBC. The white count was 15,100, hemoglobin 13.7, hematocrit 40. The patient's BUN 23.2, creatinine 1.6. Platelets were 73. The patient's sodium was 141. His chloride was 108. His liver enzymes were slightly elevated. His AST was 849, ALT 246. Troponin I was 0.42. Quantitative alcohol was 52.7. Patient had a STAT CT of his cervical spine as well as his lumbar spine. He also had a portable chest x-ray. He has got 1000 mL of IV fluids running wide open. He is also on IV Tylenol. CK levels are pending. IMPRESSION: At present is 1. Cocaine and alcohol abuse. 2. Sexual deviation with possible intermittent priapism as well as anorgasmia. 3. Superficial penile injury with superficial lacerations. PLAN: We will recommend scrotal elevation and ice packs. We will monitor renal function. Patient should undergo a CT scan with contrast when he is more stable. We will follow with you. SHAYNE SORTO M.D. [id number]
[2019-05-10] MEDS ORDERED: LIDOCAINE PATCH REMOVAL MC ONE (16:00)
--- NOTE | 2019-05-10 18:20 | PN ---
Teaching Attending Note Name of Resident: Valentin Medrano ATTENDING PHYSICIAN STATEMENT I saw and evaluated the patient. I reviewed the resident's note and discussed the case with the resident. I agree with the resident's findings and plan as documented. SUBJECTIVE: Patient is c/o having bl thigh swelling and unable to move from the bed, and feels he is constipated. OBJECTIVE: Vital Signs Temperature 97.7 F 05/10/19 15:17 Pulse Rate 79 05/10/19 15:17 Respiratory Rate 18 05/10/19 15:17 Blood Pressure 118/78 05/10/19 15:17 O2 Sat by Pulse Oximetry (%) 98 05/10/19 09:00 GENERAL: The patient is awake, alert, and fully oriented, in no acute distress. HEAD: Normal with no signs of trauma. EYES: PERRL, extraocular movements intact, sclera anicteric, conjunctiva clear. ENT: Ears normal, oropharynx clear without exudates, moist mucous membranes. NECK: Trachea midline, full range of motion, supple. LUNGS: Breath sounds equal, clear to auscultation bilaterally, no wheezes, no crackles, no accessory muscle use. HEART: Regular rate and rhythm, S1, S2 without murmur, rub or gallop. ABDOMEN: Soft, nontender, nondistended, normoactive bowel sounds, no guarding, no rebound, no hepatosplenomegaly, no masses. EXTREMITIES: 2+ pulses, warm, well-perfused, bl swelling of thighs with mottled knees NEUROLOGICAL: Cranial nerves II through XII grossly intact. Normal speech, gait not observed. PSYCH: Normal mood, normal affect. SKIN: Warm, dry, normal turgor, no rashes or lesions noted CBCD WBC 8.3 K/mm3 (4.0-10.0) 05/10/19 05:45 RBC 3.80 M/mm3 (4.00-5.60) L 05/10/19 05:45 Hgb 12.6 GM/dL (11.7-16.9) 05/10/19 05:45 Hct 37.1 % (35.4-49) 05/10/19 05:45 MCV 97.4 fl (80-96) H 05/10/19 05:45 MCHC 34.1 g/dl (32.0-35.9) 05/10/19 05:45 RDW 13.1 % (11.9-15.9) 05/10/19 05:45 Plt Count 229 K/MM3 (134-434) D 05/10/19 05:45 MPV 7.6 fl (7.5-11.1) 05/10/19 05:45 CMP Sodium 144 mmol/L (136-145) 05/10/19 05:45 Potassium 4.5 mmol/L (3.5-5.1) 05/10/19 05:45 Chloride 113 mmol/L (98-107) H 05/10/19 05:45 Carbon Dioxide 25 mmol/L (21-32) 05/10/19 05:45 Anion Gap 6 MMOL/L (8-16) L 05/10/19 05:45 BUN 20.5 mg/dL (7-18) H 05/10/19 05:45 Creatinine 1.0 mg/dL (0.55-1.3) 05/10/19 05:45 Random Glucose 84 mg/dL (74-106) 05/10/19 05:45 Calcium 7.8 mg/dL (8.5-10.1) L 05/10/19 05:45 Total Bilirubin 0.6 mg/dL (0.2-1) 05/10/19 05:45 AST 1353 U/L (15-37) H 05/10/19 05:45 ALT 414 U/L (13-61) H 05/10/19 05:45 Alkaline Phosphatase 49 U/L (45-117) 05/10/19 05:45 Total Protein 6.1 g/dl (6.4-8.2) L 05/10/19 05:45 Albumin 3.3 g/dl (3.4-5.0) L 05/10/19 05:45 CARDIAC ENZYMES Creatine Kinase > 63994 U/L (26-308) H 05/10/19 11:13 Troponin I 0.18 ng/ml (0.00-0.05) H 05/10/19 11:13 Current Medications Generic Name Dose Route Start Last Admin Trade Name Freq PRN Reason Stop Dose Admin Albuterol Sulfate 2 puff 05/09/19 19:02 Ventolin Hfa Inhaler - IH Q4H PRN SHORT OF BREATH/WHEEZING Benzocaine/Menthol 1 each 05/10/19 10:07 Cepacol Lozenge - MM PRN PRN SORE THROAT Clonazepam 1 mg 05/09/19 19:02 05/10/19 09:49 Klonopin - PO 1 mg TID PRN Administration ANXIETY Sodium Chloride 1,000 mls @ 200 mls/hr 05/09/19 18:30 05/10/19 00:15 Normal Saline - IV 200 mls/hr ASDIR GIOVANNI Administration Lamotrigine 100 mg/ 150 mg 05/09/19 22:00 05/10/19 10:18 Lamotrigine 50 mg PO 150 mg BID GIOVANNI Administration Lidocaine/Aluminum/Magnesium/Simeth 5 ml 05/10/19 00:00 05/10/19 12:17 Magic Mouthwash *Sjr Formula* - MM 5 ml Q6HPO GIOVANNI Administration Non-Formulary Medication 1 each 05/10/19 10:00 Patient's Own Med PO DAILY [facility] Home Medications Medication Instructions Recorded Albuterol Sulfate Inhaler - 2 inh PO Q4H PRN #1 inh 12/14/15 [Ventolin HFA Inhaler -] Clomipramine HCl 50 mg PO TID 05/09/19 Clonazepam 1 mg PO TID 05/09/19 Fluticasone/Vilanterol [Breo 1 each IH DAILY 05/09/19 Ellipta 100-25 Mcg INH] Lamotrigine 150 mg PO BID 05/09/19 Montelukast Na [Singulair -] 10 mg PO HS 05/10/19 Laboratory Tests 05/09/19 05/09/19 05/09/19 12:55 12:55 12:55 WBC 15.1 H Creatinine 1.6 H Creatine Kinase CK-MB (CK-2) Troponin I 0.42 H Alcohol, Quantitative 52.7 H Hep A IgM Ab Confirm Hep Bs Antigen Hep B Core IgM Ab Hepatitis C Ab (EIA) 05/09/19 05/09/19 05/10/19 16:20 16:20 05:45 WBC Creatinine Creatine Kinase > 29036 H CK-MB (CK-2) 206.3 H Troponin I 0.45 H Alcohol, Quantitative Hep A IgM Ab Confirm Pending Hep Bs Antigen Pending Hep B Core IgM Ab Pending Hepatitis C Ab (EIA) Pending 05/10/19 05/10/19 05/10/19 05:45 05:45 11:13 WBC 8.3 Creatinine 1.0 Creatine Kinase > 18889 H > 67670 H CK-MB (CK-2) 157.0 H 115.6 H Troponin I 0.18 H Alcohol, Quantitative Hep A IgM Ab Confirm Hep Bs Antigen Hep B Core IgM Ab Hepatitis C Ab (EIA) ASSESSMENT AND PLAN: Patient is a 43yom with a PMHx of OCD, anxiety disorder, NOE on CPAP, Etoh dependence, and occasional cocaine user was admitted for rhabdomyolysis with troponemia and HIPOLITO. On this admission : patient drank Vodka at a democrat with an 8 -ball (about 10 lines) of cocaine, afterward became euphoric and had an extreme urge to masturbate, as per patient, masturbated for hours for 4-5 hours , afterward went to [facility] to be admitted for detox-while attempting to register he had frequent repeated falls. Came in to Ed. was found to have severe rhando. with myalgia, unable to ambulate. # Acute Rhabdomyolysis due to cocaine use , trend the level, continue IVF 200cc /hr, nephro on the case #Self inflicted penile injury: patient was seen in Ed. by the urologist for possible injury #HIPOLITO: improved post IVF # Elevated Troponins: due to rhabdo and vigourous activity , seen by cardio #Elevated LFTs: monitor #NOE: continue CPAP QHS #OCD: continue Clomipramine hold lamotrigine in the setting of elevated LFTs #Alcohol and Cocaine Abuse exacerbated Rhabdo DVT PPx: SCDs
[2019-05-10] MEDS ORDERED: LIDOCAINE HCL 5% TOP OINTMENT 50 GM TUBE TP ONE (19:55)
[2019-05-11] MEDS: MAG HYDROX/ALH/SMC/DPHA/LIDO 240 ML MOUTHWASH MM SCH ×2 (00:36→06:10)
[2019-05-11] MEDS ORDERED: MORPHINE SULFATE 2 MG/ML VIAL IVPUSH ONE (02:46)
[2019-05-11 08:07] LABS: BASO % 0.7 % (0-2.0); EOS % 0.8 % (0-4.5); HEMOGLOBIN 11.8 GM/dL (11.7-16.9); LYMPH % 39.2 % (8-40); MCH 32.8 pg (25.7-33.7); MCHC 33.6 g/dl (32.0-35.9); MEAN CELL VOLUME 97.5 fl (80-96); MEAN PLT VOLUME 7.6 fl (7.5-11.1); NEUT % 49.3 % (42.8-82.8); PLATELET COUNT 216 K/MM3 (134-434); RDW 13.2 % (11.9-15.9); WHITE BLOOD COUNT 5.6 K/mm3 (4.0-10.0)
[2019-05-11 08:18] LABS: INR 0.92 (0.83-1.09); PROTHROMBIN TIME (PATIENT) 10.9 SEC (9.7-13.0)
[2019-05-11 08:21] LABS: ACTIVATED PTT 27.3 SECONDS (25.2-36.5)
--- NOTE | 2019-05-11 08:45 | PN ---
Teaching Attending Note Name of Resident: Valentin Medrano ATTENDING PHYSICIAN STATEMENT I saw and evaluated the patient. I reviewed the resident's note and discussed the case with the resident. I agree with the resident's findings and plan as documented. SUBJECTIVE: Patient is feeling better , able to stand up, keep asking whether he can be discharged , patient was explained in details that he cannot be discharged since he has elevated CPK level of over 14K, which can cause severe kidney failure. Patient understood. Also his liver is affected from the rhabdo. Vital Signs Temperature 97.9 F 05/11/19 05:00 Pulse Rate 67 05/11/19 05:00 Respiratory Rate 20 05/11/19 08:35 Blood Pressure 126/77 05/11/19 05:00 O2 Sat by Pulse Oximetry (%) 97 05/11/19 08:35 GENERAL: The patient is awake, alert, and fully oriented, in no acute distress. HEAD: Normal with no signs of trauma. EYES: PERRL, extraocular movements intact, sclera anicteric, conjunctiva clear. ENT: Ears normal, oropharynx clear without exudates, moist mucous membranes. NECK: Trachea midline, full range of motion, supple. LUNGS: Breath sounds equal, clear to auscultation bilaterally, no wheezes, no crackles, no accessory muscle use. HEART: Regular rate and rhythm, S1, S2 without murmur, rub or gallop. ABDOMEN: Soft, nontender, nondistended, normoactive bowel sounds, no guarding, no rebound, no hepatosplenomegaly, no masses. EXTREMITIES: 2+ pulses, warm, well-perfused, bl swelling of thighs with mottled knees improving ,less mottled today. NEUROLOGICAL: Cranial nerves II through XII grossly intact. Normal speech, gait not observed. PSYCH: Normal mood, normal affect. SKIN: Warm, dry, normal turgor, no rashes or lesions noted CBCD WBC 5.6 K/mm3 (4.0-10.0) 05/11/19 06:10 RBC 3.60 M/mm3 (4.00-5.60) L 05/11/19 06:10 Hgb 11.8 GM/dL (11.7-16.9) 05/11/19 06:10 Hct 35.0 % (35.4-49) L 05/11/19 06:10 MCV 97.5 fl (80-96) H 05/11/19 06:10 MCHC 33.6 g/dl (32.0-35.9) 05/11/19 06:10 RDW 13.2 % (11.9-15.9) 05/11/19 06:10 Plt Count 216 K/MM3 (134-434) 05/11/19 06:10 MPV 7.6 fl (7.5-11.1) 05/11/19 06:10 CMP Sodium 144 mmol/L (136-145) 05/10/19 05:45 Potassium 4.5 mmol/L (3.5-5.1) 05/10/19 05:45 Chloride 113 mmol/L (98-107) H 05/10/19 05:45 Carbon Dioxide 25 mmol/L (21-32) 05/10/19 05:45 Anion Gap 6 MMOL/L (8-16) L 05/10/19 05:45 BUN 20.5 mg/dL (7-18) H 05/10/19 05:45 Creatinine 1.0 mg/dL (0.55-1.3) 05/10/19 05:45 Random Glucose 84 mg/dL (74-106) 05/10/19 05:45 Calcium 7.8 mg/dL (8.5-10.1) L 05/10/19 05:45 Total Bilirubin 0.6 mg/dL (0.2-1) 05/10/19 05:45 AST 1353 U/L (15-37) H 05/10/19 05:45 ALT 414 U/L (13-61) H 05/10/19 05:45 Alkaline Phosphatase 49 U/L (45-117) 05/10/19 05:45 Total Protein 6.1 g/dl (6.4-8.2) L 05/10/19 05:45 Albumin 3.3 g/dl (3.4-5.0) L 05/10/19 05:45 CARDIAC ENZYMES Creatine Kinase > 56501 U/L (26-308) H 05/10/19 11:13 Troponin I 0.18 ng/ml (0.00-0.05) H 05/10/19 11:13 CBCD WBC 5.6 K/mm3 (4.0-10.0) 05/11/19 06:10 RBC 3.60 M/mm3 (4.00-5.60) L 05/11/19 06:10 Hgb 11.8 GM/dL (11.7-16.9) 05/11/19 06:10 Hct 35.0 % (35.4-49) L 05/11/19 06:10 MCV 97.5 fl (80-96) H 05/11/19 06:10 MCHC 33.6 g/dl (32.0-35.9) 05/11/19 06:10 RDW 13.2 % (11.9-15.9) 05/11/19 06:10 Plt Count 216 K/MM3 (134-434) 05/11/19 06:10 MPV 7.6 fl (7.5-11.1) 05/11/19 06:10 CMP Sodium 143 mmol/L (136-145) 05/11/19 06:10 Potassium 4.4 mmol/L (3.5-5.1) 05/11/19 06:10 Chloride 113 mmol/L (98-107) H 05/11/19 06:10 Carbon Dioxide 26 mmol/L (21-32) 05/11/19 06:10 Anion Gap 5 MMOL/L (8-16) L 05/11/19 06:10 BUN 12.2 mg/dL (7-18) 05/11/19 06:10 Creatinine 0.8 mg/dL (0.55-1.3) 05/11/19 06:10 Random Glucose 83 mg/dL (74-106) 05/11/19 06:10 Calcium 7.8 mg/dL (8.5-10.1) L 05/11/19 06:10 Total Bilirubin 0.4 mg/dL (0.2-1) 05/11/19 06:10 AST 792 U/L (15-37) H 05/11/19 06:10 ALT 402 U/L (13-61) H 05/11/19 06:10 Alkaline Phosphatase 44 U/L (45-117) L 05/11/19 06:10 Total Protein 5.7 g/dl (6.4-8.2) L 05/11/19 06:10 Albumin 2.9 g/dl (3.4-5.0) L 05/11/19 06:10 CARDIAC ENZYMES Creatine Kinase > 17808 U/L (26-308) H 05/11/19 06:10 Troponin I 0.18 ng/ml (0.00-0.05) H 05/10/19 11:13 Current Medications Generic Name Dose Route Start Last Admin Trade Name Freq PRN Reason Stop Dose Admin Albuterol Sulfate 2 puff 05/09/19 19:02 Ventolin Hfa Inhaler - IH Q4H PRN SHORT OF BREATH/WHEEZING Benzocaine/Menthol 1 each 05/10/19 10:07 Cepacol Lozenge - MM PRN PRN SORE THROAT Clonazepam 1 mg 05/09/19 19:02 05/10/19 22:08 Klonopin - PO 1 mg TID PRN Administration ANXIETY Sodium Chloride 1,000 mls @ 200 mls/hr 05/09/19 18:30 05/10/19 21:51 Normal Saline - IV 200 mls/hr ASDIR GIOVANNI Administration Lamotrigine 100 mg/ 150 mg 05/09/19 22:00 05/10/19 21:50 Lamotrigine 50 mg PO Not Given BID GIOVANNI Lidocaine/Aluminum/Magnesium/Simeth 5 ml 05/10/19 00:00 05/11/19 06:10 Magic Mouthwash *Sjr Formula* - MM 5 ml Q6HPO GIOVANNI Administration Clomipramine 50 Mg 1 each 05/10/19 10:00 Capsule PO DAILY [facility] Home Medications Medication Instructions Recorded Albuterol Sulfate Inhaler - 2 inh PO Q4H PRN #1 inh 12/14/15 [Ventolin HFA Inhaler -] Clomipramine HCl 50 mg PO TID 05/09/19 Clonazepam 1 mg PO TID 05/09/19 Fluticasone/Vilanterol [Breo 1 each IH DAILY 05/09/19 Ellipta 100-25 Mcg INH] Lamotrigine 150 mg PO BID 05/09/19 Montelukast Na [Singulair -] 10 mg PO HS 05/10/19 Laboratory Tests 05/09/19 05/09/19 05/09/19 12:55 12:55 12:55 WBC 15.1 H Creatinine 1.6 H Creatine Kinase CK-MB (CK-2) Troponin I 0.42 H Alcohol, Quantitative 52.7 H Hep A IgM Ab Confirm Hep Bs Antigen Hep B Core IgM Ab Hepatitis C Ab (EIA) 05/09/19 05/09/19 05/10/19 16:20 16:20 05:45 WBC Creatinine Creatine Kinase > 64031 H CK-MB (CK-2) 206.3 H Troponin I 0.45 H Alcohol, Quantitative Hep A IgM Ab Confirm Pending Hep Bs Antigen Pending Hep B Core IgM Ab Pending Hepatitis C Ab (EIA) Pending 05/10/19 05/10/19 05/10/19 05:45 05:45 11:13 WBC 8.3 Creatinine 1.0 Creatine Kinase > 28033 H > 46804 H CK-MB (CK-2) 157.0 H 115.6 H Troponin I 0.18 H Alcohol, Quantitative Hep A IgM Ab Confirm Hep Bs Antigen Hep B Core IgM Ab Hepatitis C Ab (EIA) ASSESSMENT AND PLAN: Patient is a 43yom with a PMHx of OCD, anxiety disorder, NOE on CPAP, Etoh dependence, and occasional cocaine user was admitted for rhabdomyolysis with troponemia and HIPOLITO. On this admission : patient drank Vodka at a green party with an 8 -ball (about 10 lines) of cocaine, afterward became euphoric and had an extreme urge to masturbate, as per patient, masturbated for hours for 4-5 hours , afterward went to [facility] to be admitted for detox-while attempting to register he had frequent repeated falls. Came in to Ed. was found to have severe rhabdo. with myalgia, unable to ambulate. #Acute Rhabdomyolysis due to cocaine use , trend the level of LFTs and CPK level since is still above , will increase the IVF to 250cc /hr . nephro on the case #Self inflicted penile injury: patient was seen in Ed. by the urologist , follow up with urologist upon dc. #HIPOLITO: improved post IVF # Elevated Troponins: due to rhabdo and vigourous activity , seen by cardio #Elevated LFTs: trend , started to improve now. #NOE: continue CPAP QHS #OCD: continue Clomipramine , dose reduced according to the liver function on lamotrigine daily instead of 2x per day in the setting of elevated LFTs #Alcohol and Cocaine Abuse exacerbated Rhabdo DVT PPx: SCDs dose of clomiprAMINE ADJUSTED ACCORDING TO LIVER FAILURE AND LAMICTAL DOSE WAS NOT GIVEN continue to monitor LFts and CPKs serial.
[2019-05-11 09:05] LABS: ALBUMIN 2.9 g/dl (3.4-5.0); ALK PHOS 44 U/L (45-117); ANION GAP 5 MMOL/L (8-16); BILIRUBIN,TOTAL 0.4 mg/dL (0.2-1); BLOOD UREA NITROGEN 12.2 mg/dL (7-18); CALCIUM 7.8 mg/dL (8.5-10.1); CHLORIDE 113 mmol/L (98-107); CO2 26 mmol/L (21-32); CREATININE 0.8 mg/dL (0.55-1.3); GLUCOSE,RANDOM 83 mg/dL (74-106); MAGNESIUM 1.8 mg/dL (1.8-2.4); PHOSPHOROUS 2.6 mg/dL (2.5-4.9); POTASSIUM 4.4 mmol/L (3.5-5.1); SGOT/AST 792 U/L (15-37); SGPT/ALT 402 U/L (13-61); SODIUM 143 mmol/L (136-145); TOT PROT 5.7 g/dl (6.4-8.2)
[2019-05-11 09:06] LABS: EPI CELLS 0.3 /HPF (0-5/HPF); HYALINE CASTS 0 /lpf (0-8); URINE APPEARANCE CLEAR; URINE BACTERIA 0 /hpf (NEGATIVE); URINE BILIRUBIN NEGATIVE (NEGATIVE); URINE COLOR YELLOW; URINE GLUCOSE (UA) NEGATIVE (NEGATIVE); URINE KETONE NEGATIVE (NEGATIVE); URINE LEUK ESTERASE NEGATIVE (NEGATIVE); URINE NITRITE NEGATIVE (NEGATIVE); URINE PROTEIN NEGATIVE (NEGATIVE); URINE RBC 1 /hpf (0-4); URINE WBC 1 /hpf (0-5)
[2019-05-11 09:42] LABS: METHADONE, UR NEGATIVE ng/ml (CUTOFF=300); PHENCYCLIDINE,URINE NEGATIVE ng/ml (CUTOFF=25); URINE AMPHETAMINES NEGATIVE ng/ml (CUTOFF=500); URINE BARBITURATES NEGATIVE ng/ml (CUTOFF=200); URINE BENZODIAZEPINES NEGATIVE ng/ml (CUTOFF=200)
[2019-05-11] MEDS ORDERED: SODIUM CHLORIDE 1,000 ML IV SCH (09:49)
[2019-05-11] MEDS ORDERED: POLYETHYLENE GLYCOL 3350 119 GM BTL PO SCH (10:00)
[2019-05-11 10:06] LABS: OPIATES, URI POSITIVE ng/ml (CUTOFF=300)
[2019-05-11 10:07] LABS: COCAINE, UR POSITIVE ng/ml (CUTOFF=300)
[2019-05-11 11:18] VITALS: BP 123/77; PULSE 72; TEMP 97.5
--- NOTE | 2019-05-11 11:28 | PN ---
Progress Note (short form) - Note Progress Note: s: no chest pain, palps, dizziness, dyspnea Current Medications Albuterol Sulfate (Ventolin Hfa Inhaler -) 2 puff IH Q4H PRN PRN Reason: SHORT OF BREATH/WHEEZING Benzocaine/Menthol (Cepacol Lozenge -) 1 each MM PRN PRN PRN Reason: SORE THROAT Clonazepam (Klonopin -) 1 mg PO TID PRN PRN Reason: ANXIETY Last Admin: 05/10/19 22:08 Dose: 1 mg Sodium Chloride (Normal Saline -) 1,000 mls @ 250 mls/hr IV ASDIR GIOVANNI Lamotrigine 100 mg/ (Lamotrigine 50 mg) 150 mg PO HS GIOVANNI Lidocaine/Aluminum/Magnesium/Simeth (Magic Mouthwash *Sjr Formula* -) 5 ml MM Q6HPO GIOVANNI Last Admin: 05/11/19 06:10 Dose: 5 ml Clomipramine 50 Mg (Capsule) 1 each PO DAILY GIOVANNI Vital Signs Period Temp Pulse Resp BP Sys/Paige Pulse Ox Last 24 Hr 97.5 F-98.4 F 67-84 18-20 118-131/68-83 96-97 NAD CTAB nl s1, s2, rrr soft, nt, nd +bs no edema aox3 not agitated no jaundice, diaphoresis Assessment/Plan CXR: clear lungs, normal mediastinum ECG x2: NSR, WNL tele: NSR, no events echo 05/2019 nl LV/RV function chest pain: -non-anginal description, mild sx's he notices only in retrospect - no reoccurence -echo unremarkable -if no change in sx's, would defer ischemia eval in setting of recent cocaine abuse. outpt f/u for surveillance -can dc tele elevated trop: -trop 0.4-0.4 = indeterminate range, flat trend, now c/w ACS. ECG normal x 2 -CPK >14K with hi CK-MB but normal index--sec to rhabdo HIPOLITO, rhabdo: -IVF, plan per hospitalist -renal fxn improving cocaine and etoh abuse: -pt advised of hi risk of with current presentation of cocaine-induced rhabdo and other potential fatal complications -counselled on cessation
[2019-05-11] MEDS: clonazePAM 0.5 MG TABLET PO PRN (11:54)
--- NOTE | 2019-05-11 13:48 | DS ---
Physical Exam: SUBJECTIVE: Patient seen and examined at the bedside. Stated he was feeling better and was eager to go home. Noted that his urine was clearing up and that his knee pain was improving. Stated he did not have acute complains of cp, sob, abd pain, n/v/c/d, headaches, dizziness, lightheadedness, focal weakness, numbness, tingling, dysuria, hematuria. Patient voiced his want to go home and sign out against medical advice. Patient was advised that leaving against medical advice while having elevated CPK levels can lead to damage to the kidney with possible kidney failure leading to dialysis, liver damage, cardiac damage, sepsis, coma, . Patient voiced that he understood this, reiterated it back, and continued to endorse that he wanted to leave against medical advice. OBJECTIVE: Vital Signs Period Temp Pulse Resp BP Sys/Paige Pulse Ox Last 24 Hr 97.5 F-98.4 F 67-84 18-20 118-131/68-83 96-97 PHYSICAL EXAM GENERAL: The patient is awake, alert, and fully oriented, in no acute distress. HEAD: Normal with no signs of trauma. EYES: PERRL, extraocular movements intact, conjunctiva clear. ENT: Oropharynx clear without exudates, moist mucous membranes. LUNGS: Breath sounds equal, clear to auscultation bilaterally, no wheezes, no crackles, no accessory muscle use. HEART: Regular rate and rhythm, S1, S2 without murmur. ABDOMEN: Soft, obese, nontender, nondistended, normoactive bowel sounds, no guarding, no rebound. EXTREMITIES: 2+ pulses, warm, well-perfused, no edema. Noted bilateral ecchymoses around the knees anteriorly and posteriorly with some tenderness to the touch. NEUROLOGICAL: Cranial nerves II through XII grossly intact. 5/5 muscle strength bilaterally on the upper and lower extremities. Sensation intact to gross touch bilaterally. PSYCH: Normal mood, normal affect. SKIN: Warm, dry, normal turgor, ecchymoses as above. LABS Laboratory Results - last 24 hr 05/10/19 05/10/19 05/10/19 05:45 05:45 06:00 WBC RBC Hgb Hct MCV MCH MCHC RDW Plt Count MPV Absolute Neuts (auto) Neutrophils % Lymphocytes % Monocytes % Eosinophils % Basophils % Nucleated RBC % PT with INR INR PTT (Actin FS) Sodium Potassium Chloride Carbon Dioxide Anion Gap BUN Creatinine Est GFR (CKD-EPI)AfAm Est GFR (CKD-EPI)NonAf Random Glucose Calcium Phosphorus Magnesium Total Bilirubin AST ALT Alkaline Phosphatase Creatine Kinase Creatine Kinase Index 0.0 CK-MB (CK-2) 157.0 H Troponin I Total Protein Albumin Urine Color Yellow Urine Appearance Clear Urine pH 6.0 Ur Specific [place] 1.018 Urine Protein Negative Urine Glucose (UA) Negative Urine Ketones Negative Urine Blood Trace Urine Nitrite Negative Urine Bilirubin Negative Urine Urobilinogen 1.0 Ur Leukocyte Esterase Negative Urine WBC (Auto) 1 Urine RBC (Auto) 1 Urine Casts (Auto) 0 U Epithel Cells (Auto) 0.3 Urine Bacteria (Auto) 0 Opiates Screen Methadone Screen Barbiturate Screen Phencyclidine Screen Ur Amphetamines Screen MDMA (Ecstasy) Screen Benzodiazepines Screen Cocaine Screen U Marijuana (THC) Screen Hep A IgM Ab Confirm Negative Hep Bs Antigen Negative Hep B Core IgM Ab Negative Hepatitis C Ab (EIA) <0.1 05/10/19 05/10/19 05/10/19 06:00 11:13 14:30 WBC RBC Hgb Hct MCV MCH MCHC RDW Plt Count MPV Absolute Neuts (auto) Neutrophils % Lymphocytes % Monocytes % Eosinophils % Basophils % Nucleated RBC % PT with INR INR PTT (Actin FS) Sodium Potassium Chloride Carbon Dioxide Anion Gap BUN Creatinine Est GFR (CKD-EPI)AfAm Est GFR (CKD-EPI)NonAf Random Glucose Calcium Phosphorus Magnesium Total Bilirubin AST ALT Alkaline Phosphatase Creatine Kinase > 82398 H Cancelled Creatine Kinase Index 0.0 CK-MB (CK-2) 115.6 H Troponin I 0.18 H Total Protein Albumin Urine Color Urine Appearance Urine pH Ur Specific [place] Urine Protein Urine Glucose (UA) Urine Ketones Urine Blood Urine Nitrite Urine Bilirubin Urine Urobilinogen Ur Leukocyte Esterase Urine WBC (Auto) Urine RBC (Auto) Urine Casts (Auto) U Epithel Cells (Auto) Urine Bacteria (Auto) Opiates Screen Positive A* Methadone Screen Negative Barbiturate Screen Negative Phencyclidine Screen Negative Ur Amphetamines Screen Negative MDMA (Ecstasy) Screen Negative Benzodiazepines Screen Negative Cocaine Screen Positive A* U Marijuana (THC) Screen Negative Hep A IgM Ab Confirm Hep Bs Antigen Hep B Core IgM Ab Hepatitis C Ab (EIA) 05/11/19 05/11/19 05/11/19 06:10 06:10 06:10 WBC 5.6 RBC 3.60 L Hgb 11.8 Hct 35.0 L MCV 97.5 H MCH 32.8 MCHC 33.6 RDW 13.2 Plt Count 216 MPV 7.6 Absolute Neuts (auto) 2.8 Neutrophils % 49.3 D Lymphocytes % 39.2 D Monocytes % 10.0 Eosinophils % 0.8 D Basophils % 0.7 Nucleated RBC % 0 PT with INR 10.90 INR 0.92 PTT (Actin FS) 27.3 Sodium 143 Potassium 4.4 Chloride 113 H Carbon Dioxide 26 Anion Gap 5 L BUN 12.2 Creatinine 0.8 Est GFR (CKD-EPI)AfAm 126.81 Est GFR (CKD-EPI)NonAf 109.41 Random Glucose 83 Calcium 7.8 L Phosphorus 2.6 Magnesium 1.8 Total Bilirubin 0.4 AST 792 H ALT 402 H Alkaline Phosphatase 44 L Creatine Kinase > 87235 H Creatine Kinase Index 0.0 CK-MB (CK-2) 35.4 H Troponin I Total Protein 5.7 L Albumin 2.9 L Urine Color Urine Appearance Urine pH Ur Specific [place] Urine Protein Urine Glucose (UA) Urine Ketones Urine Blood Urine Nitrite Urine Bilirubin Urine Urobilinogen Ur Leukocyte Esterase Urine WBC (Auto) Urine RBC (Auto) Urine Casts (Auto) U Epithel Cells (Auto) Urine Bacteria (Auto) Opiates Screen Methadone Screen Barbiturate Screen Phencyclidine Screen Ur Amphetamines Screen MDMA (Ecstasy) Screen Benzodiazepines Screen Cocaine Screen U Marijuana (THC) Screen Hep A IgM Ab Confirm Hep Bs Antigen Hep B Core IgM Ab Hepatitis C Ab (EIA) HOSPITAL COURSE: Rito Ambrose is a 43 male with a past medical history of OCD, anxiety disorder , NOE on CPAP, Etoh dependence, PSA with cocaine admitted for rhabdomyolysis with troponemia and HIPOLITO. Patient was treated with aggressive fluid hydration. LFTs, CRE, troponins improved with fluid hydration all likely from rhabdomyolisis. EKG was negative for ACS. Patient's chest pain resolved. Echo showed EF60-65%, borderline left concentric hypertrophy, trace to mild mitral regurg, trace tricuspid regurg. Seen by cardiology who advised to continue hydration, avoid cocaine use. Patient was told to follow up outpatient. CPK consistently was greater than [id number]. Bladder U/S noted bladder wall thickening. Patient was seen by urology for penile trauma with no inpatient workup. Seen by nephrology who advised to continue aggressive fluid hydration, avoid nephrotoxins. Patient was advised to cease alcohol and cocaine use. Patient notified staff that he wanted to leave the hospital. Patient continued to have elevated CPK levels. Was advised that leaving against medical advice while having elevated CPK levels can lead to risks of including but not limited to damage to the kidney with possible kidney failure leading to dialysis, liver damage, cardiac damage, sepsis, coma, . Patient voiced that he understood this, reiterated it back, and continued to endorse that he wanted to leave against medical advice. Patient had IV removed, signed AMA paperwork, and left the hospital. Date of Admission:05/10/19 Date of Discharge: 05/11/19 Minutes to complete discharge: 35 Discharge Summary Problems reviewed: Yes Reason For Visit: ELEVATED TROPONIN LEVEL Current Active Problems Alcohol dependence with uncomplicated withdrawal (Acute) Anxiety and depression (Acute) Knee injuries (Acute) Syncope (Acute) Condition: Fair - Instructions Disposition: AGAINST MEDICAL ADVICE - Home Medications Comprehensive Discharge Medication List: Ambulatory Orders Albuterol Sulfate Inhaler - [Ventolin HFA Inhaler -] 2 inh PO Q4H PRN #1 inh 08/23 Clomipramine HCl 50 mg PO TID 05/09/19 Clonazepam 1 mg PO TID 05/09/19 Fluticasone/Vilanterol [Breo Ellipta 100-25 Mcg INH] 1 each IH DAILY 05/09/19 Lamotrigine 150 mg PO BID 05/09/19 Montelukast Na [Singulair -] 10 mg PO HS 05/10/19 Problem List - Problems (1) Anxiety and depression Code(s): F41.9 - ANXIETY DISORDER, UNSPECIFIED; F32.9 - MAJOR DEPRESSIVE DISORDER, SINGLE EPISODE, UNSPECIFIED (2) Knee injuries Code(s): S89.90XA - UNSPECIFIED INJURY OF UNSPECIFIED LOWER LEG, INIT ENCNTR (3) HIPOLITO (acute kidney injury) Code(s): N17.9 - ACUTE KIDNEY FAILURE, UNSPECIFIED (4) Contusion, knee and lower leg Code(s): S80.00XA - CONTUSION OF UNSPECIFIED KNEE, INITIAL ENCOUNTER; S80.10XA - CONTUSION OF UNSPECIFIED LOWER LEG, INITIAL ENCOUNTER Qualifiers: Encounter type: initial encounter Laterality: unspecified laterality Qualified Code(s): S80.00XA - Contusion of unspecified knee, initial encounter; S80.10XA - Contusion of unspecified lower leg, initial encounter (5) Rhabdomyolysis Code(s): M62.82 - RHABDOMYOLYSIS (6) Transaminitis Code(s): R74.0 - NONSPEC ELEV OF LEVELS OF TRANSAMNS & LACTIC ACID DEHYDRGNSE This patient is new to me today: No Emergency Visit: Yes ED Registration Date: 05/10/19 Care time: The patient presented to the Emergency Department on the above date and was hospitalized for further evaluation of their emergent condition. Critical Care patient: No - Discharge Referral Referred to [facility] Med [facility].: No
--- NOTE | 2019-05-11 14:09 | PN ---
Progress Note, Physician History of Present Illness: Pt seen and examined at bedside. he says that he feels much better. He is refusing to stay in the hospital and is signing out ama. Risk of explained to him. - Objective Vital Signs: Vital Signs Temperature 97.5 F L 05/11/19 09:00 Pulse Rate 72 05/11/19 09:00 Respiratory Rate 18 05/11/19 09:00 Blood Pressure 123/77 05/11/19 09:00 O2 Sat by Pulse Oximetry (%) 97 05/11/19 08:35 Constitutional: Yes: Calm Eyes: Yes: Conjunctiva Clear HENT: Yes: Atraumatic Neck: Yes: Supple Cardiovascular: Yes: S1, S2 Respiratory: Yes: CTA Bilaterally Gastrointestinal: Yes: Soft Genitourinary: Yes: WNL Musculoskeletal: Yes: WNL Edema: No Integumentary: Yes: WNL Neurological: Yes: Oriented Psychiatric: Yes: Oriented Labs: CBC, BMP 05/11/19 06:10 05/11/19 06:10 INR, PTT INR 0.92 (0.83-1.09) 05/11/19 06:10 Problem List - Problems (1) HIPOLITO (acute kidney injury) Code(s): N17.9 - ACUTE KIDNEY FAILURE, UNSPECIFIED (2) Rhabdomyolysis Code(s): M62.82 - RHABDOMYOLYSIS (3) Alcohol dependence with uncomplicated withdrawal Code(s): F10.230 - ALCOHOL DEPENDENCE WITH WITHDRAWAL, UNCOMPLICATED (4) Anxiety and depression Code(s): F41.9 - ANXIETY DISORDER, UNSPECIFIED; F32.9 - MAJOR DEPRESSIVE DISORDER, SINGLE EPISODE, UNSPECIFIED Assessment/Plan Laboratory Tests 05/10/19 06:00 Urine Protein Negative Urine Blood Trace Impression 1. HIPOLITO 2. rhabdo 3. etoh abuse 4. cocaine use 5. asthma 6. NOE 7. transaminitis Plan - recommend that he continues on fluids - recommend that he does not go home - cpk remains elevated - check ua - monitor lytes closely - monitor ast and alt levels
[2019-05-11] MEDS ORDERED: LAMOTRIGINE 100 MG, LAMOTRIGINE 50 MG PO SCH (22:00)
== END 2019-05-11 13:03 | disposition left against medical advice (07) | DRG 683 ==
LOC: JER 12:25 → JERBED 15:01 → J4W 21:32 → OBSVTOIN 05-10 08:19
PROVIDERS: ATTEND Internal Medicine
DX: N17.9 Acute kidney failure, unspecified (principal); M62.82 Rhabdomyolysis; F14.20 Cocaine dependence, uncomplicated; F10.230 Alcohol dependence with withdrawal, uncomplicated; R74.0 Nonspecific elevation of levels of transaminase and lactic acid dehydrogenase [LDH]; M54.5 Low back pain; R29.6 Repeated falls; G47.33 Obstructive sleep apnea (adult) (pediatric); F42.9 Obsessive-compulsive disorder, unspecified; J45.909 Unspecified asthma, uncomplicated; F41.9 Anxiety disorder, unspecified; E66.9 Obesity, unspecified; Z68.34 Body mass index [BMI] 34.0-34.9, adult; R79.89 Other specified abnormal findings of blood chemistry; S39.848A Other specified injuries of external genitals, initial encounter
CPT/HCPCS: 36415; 70450-TC; 71045-TC-FY; 72125-TC; 72131-TC; 72170-TC-FY; 73502-TC-LT-FY; 73502-TC-RT-FY; 73562-TC-LT-FY; 73562-TC-RT-FY; 76705-TC; 76775-TC; 76856-TC; 80053; 80074; 80307; 81003; 82550; 82553; 83735; 84100; 84484; 85025; 85610; 85730; 93005; 93010; 93306-TC; 94660; 99285-25; G0378; J0131; J7030